=== PATIENT | female | born 1985 | race Caucasian/White ===

== ENCOUNTER 2019-02-05 18:24 | Emergency (ER) | payer OTHER ==
--- NOTE | 2019-02-05 19:17 | ED ---
General Adult HPI - General Chief complaint: Abdominal Pain Stated complaint: water weight gain Time Seen by Provider: 02/05/19 18:43 Source: patient Mode of arrival: ambulatory Limitations: no limitations - History of Present Illness Initial comments: Dictation was produced using MST dictation software. please excuse any grammatical, word or spelling errors. Chief Complaint: 34-year-old female witha few past medical history presents with 60 pound weight gain in pitting edema to her bilateral lower extremities. History of Present Illness: Patient is a 34-year-old female she is currently at [facility] for alcohol detoxification. Patient states she is here today because over the last 3-4 days she's been having swelling to her bilateral lower extremities. Patient states she's never had anything like this before. She states that she has mild shortness of breath especially with exertion however not at rest. Denies any history of cardiomyopathy or heart failure. Patient denies any changes in urinary habits. Denies any changes in eating habits. She states she's been sober for the last 4-5 days since being at the rehab facility. She is an avid runner running for several hours a day. The ROS documented in this emergency department record has been reviewed and confirmed by me. Those systems with pertinent positive or negative responses have been documented in the HPI. All other systems are other negative and/or noncontributory. PHYSICAL EXAM: General Impression: Alert and oriented x3, not in acute distress HEENT: Normocephalic atraumatic, extra-ocular movements intact, pupils equal and reactive to light bilaterally, mucous membranes moist. Cardiovascular: Heart regular rate and rhythm, S1&S2 audible, no murmurs, rubs or gallops Chest: Lungs clear to auscultation bilaterally, no rhonchi, no wheeze, no rales Abdomen: Bowel sounds present, abdomen soft, non-tender, non-distended, no organomegaly Musculoskeletal: Pulses present and equal in all extremities, 2+ pitting edema to the bilateral lower tib-fib area Motor: no focal deficits noted Neurological: CN II-XII grossly intact, no focal motor or sensory deficits noted Skin: Intact with no visualized rashes Psych: Normal affect and mood ED course: 34-year-old female presents with pitting edema to bilateral lower ext remities, vital signs upon arrival are within acceptable limits. Laboratory evaluation obtained. CBC is unremarkable. Metabolic panel is negative. A nitro peptide is negative. Troponins negative. Urinalysis does not show proteinuria. Beta-hCG is negative. Abdominal x-ray chest x-ray is unremarkable. Patient's symptoms are likely secondary to dependent edema. And seeing fluid shifting given that she recently has been abstaining from alcohol. Patient reassured told that her symptoms are self limiting. Patient request some GoLYTELY to help her have a bowel movement. Patient given a small cup of GoLYTELY. Patient for discharge. EKG interpretation: Ventricular rate 55, sinus bradycardia, KS interval 174, care and is 78, QTC 392. No KS prolongation, no QTC prolongation, no ST or T- wave changes noted. Overall, this EKG is unremarkable - Related Data Home Medications Medication Instructions Recorded Confirmed Acetaminophen Tab [Tylenol Tab] 650 mg PO Q4H PRN 02/05/19 02/05/19 Bisacodyl [Dulcolax] 10 mg RECTAL DAILY PRN 02/05/19 02/05/19 Calcium/Magnesium 2 tab PO TID PRN 02/05/19 02/05/19 Chlorpheniramine Maleate 4 mg PO Q4H PRN 02/05/19 02/05/19 [Chlor-Trimeton] Docusate [Colace] 100 mg PO BID PRN 02/05/19 02/05/19 Ibuprofen [Motrin] 600 mg PO Q6H PRN 02/05/19 02/05/19 traZODone HCL 50 - 150 mg PO HS 02/05/19 02/05/19 Allergies Allergy/AdvReac Type Severity Reaction Status Date / Time No Known Allergies Allergy Verified 02/05/19 20:11 Review of Systems ROS Statement: Those systems with pertinent positive or pertinent negative responses have been documented in the HPI. ROS Other: All systems not noted in ROS Statement are negative. Past Medical History Past Medical History: No Reported History History of Any Multi-Drug Resistant Organisms: None Reported Past Surgical History: No Surgical Hx Reported Past Psychological History: Anxiety Smoking Status: Current every day smoker Past Alcohol Use History: None Reported, Abuse Past Drug Use History: None Reported General Exam Limitations: no limitations Course Vital Signs 02/05/19 02/05/19 18:33 19:16 Temperature 97.4 F L 98.3 F Pulse Rate 71 64 Respiratory 18 17 Rate Blood Pressure 110/72 115/69 O2 Sat by Pulse 98 97 Oximetry Medical Decision Making - Lab Data Result diagrams: 02/05/19 19:40 02/05/19 19:40 Lab Results 02/05/19 02/05/19 02/05/19 Range/Units 19:40 19:40 19:40 WBC 3.8 (3.8-10.6) k/uL RBC 3.71 L (3.80-5.40) m/uL Hgb 10.5 L (11.4-16.0) gm/dL Hct 33.2 L (34.0-46.0) % MCV 89.5 (80.0-100.0) fL MCH 28.4 (25.0-35.0) pg MCHC 31.8 (31.0-37.0) g/dL RDW 15.5 (11.5-15.5) % Plt Count 222 (150-450) k/uL Neutrophils % 59 % Lymphocytes % 30 % Monocytes % 5 % Eosinophils % 2 % Basophils % 1 % Neutrophils # 2.3 (1.3-7.7) k/uL Lymphocytes # 1.1 (1.0-4.8) k/uL Monocytes # 0.2 (0-1.0) k/uL Eosinophils # 0.1 (0-0.7) k/uL Basophils # 0.0 (0-0.2) k/uL Sodium 137 (137-145) mmol/L Potassium 3.7 (3.5-5.1) mmol/L Chloride 105 (98-107) mmol/L Carbon Dioxide 28 (22-30) mmol/L Anion Gap 4 mmol/L BUN 10 (7-17) mg/dL Creatinine 0.84 (0.52-1.04) mg/dL Est GFR (CKD-EPI)AfAm >90 (>60 ml/min/1.73 sqM) Est GFR (CKD-EPI)NonAf 90 (>60 ml/min/1.73 sqM) Glucose 93 (74-99) mg/dL Calcium 8.7 (8.4-10.2) mg/dL Troponin I (0.000-0.034) ng/mL NT-Pro-B Natriuret Pep 152 pg/mL Urine Color Urine Appearance (Clear) Urine pH (5.0-8.0) Ur Specific Clymer (1.001-1.035) Urine Protein (Negative) Urine Glucose (UA) (Negative) Urine Ketones (Negative) Urine Blood (Negative) Urine Nitrite (Negative) Urine Bilirubin (Negative) Urine Urobilinogen (<2.0) mg/dL Ur Leukocyte Esterase (Negative) Urine WBC (0-5) /hpf Ur Squamous Epith Cells (0-4) /hpf Amorphous Sediment (None) /hpf Urine HCG, Qual (Not Detectd) 02/05/19 02/05/19 02/05/19 Range/Units 19:40 19:40 19:48 WBC (3.8-10.6) k/uL RBC (3.80-5.40) m/uL Hgb (11.4-16.0) gm/dL Hct (34.0-46.0) % MCV (80.0-100.0) fL MCH (25.0-35.0) pg MCHC (31.0-37.0) g/dL RDW (11.5-15.5) % Plt Count (150-450) k/uL Neutrophils % % Lymphocytes % % Monocytes % % Eosinophils % % Basophils % % Neutrophils # (1.3-7.7) k/uL Lymphocytes # (1.0-4.8) k/uL Monocytes # (0-1.0) k/uL Eosinophils # (0-0.7) k/uL Basophils # (0-0.2) k/uL Sodium (137-145) mmol/L Potassium (3.5-5.1) mmol/L Chloride (98-107) mmol/L Carbon Dioxide (22-30) mmol/L Anion Gap mmol/L BUN (7-17) mg/dL Creatinine (0.52-1.04) mg/dL Est GFR (CKD-EPI)AfAm (>60 ml/min/1.73 sqM) Est GFR (CKD-EPI)NonAf (>60 ml/min/1.73 sqM) Glucose (74-99) mg/dL Calcium (8.4-10.2) mg/dL Troponin I <0.012 (0.000-0.034) ng/mL NT-Pro-B Natriuret Pep pg/mL Urine Color Light Yellow Urine Appearance Cloudy H (Clear) Urine pH 7.5 (5.0-8.0) Ur Specific Clymer 1.007 (1.001-1.035) Urine Protein Negative (Negative) Urine Glucose (UA) Negative (Negative) Urine Ketones Negative (Negative) Urine Blood Negative (Negative) Urine Nitrite Negative (Negative) Urine Bilirubin Negative (Negative) Urine Urobilinogen <2.0 (<2.0) mg/dL Ur Leukocyte Esterase Trace H (Negative) Urine WBC 3 (0-5) /hpf Ur Squamous Epith Cells 3 (0-4) /hpf Amorphous Sediment Few H (None) /hpf Urine HCG, Qual Not Detected (Not Detectd) Disposition Clinical Impression: Peripheral edema Disposition: HOME SELF-CARE Condition: Good Is patient prescribed a controlled substance at d/c from ED?: No Referrals: Luisa Chin MD [Primary Care Provider] - 1-2 days Time of Disposition: 21:52
--- NOTE | 2019-02-05 19:28 | XR ---
EXAMINATION TYPE: XR chest 2V DATE OF EXAM: 02/05/2019 COMPARISON: NONE HISTORY: Chest pain per order. Significant weight gain per patient. TECHNIQUE: Frontal and lateral views of the chest are obtained. FINDINGS: There is no focal air space opacity, pleural effusion, or pneumothorax seen. The cardiac silhouette size is within normal limits. The osseous structures are intact. IMPRESSION: No acute cardiopulmonary process.
[2019-02-05 19:59] LABS: Amorphous Sediment,Urine Few /hpf; Appearance,Urine Cloudy (Clear); Bilirubin,Urine Negative (Negative); Blood,Urine Negative (Negative); Color,Urine Light Yellow; Glucose,Urine (UA) Negative (Negative); Ketones,Urine Negative (Negative); Leukocyte Esterase,Urine Trace (Negative); Nitrite,Urine Negative (Negative); PH, Urine 7.5 (5.0-8.0); Protein,Urine Negative (Negative); Specific Gravity,Urine 1.007 (1.001-1.035); Squamous Epithelial Cell,Urine 3 /hpf (0-4); Urobilinogen,Urine <2.0 mg/dL (<2.0); WBC,Urine 3 /hpf (0-5)
[2019-02-05 20:05] LABS: Basophils % (A) 1 %; Eosinophils # (A) 0.1 k/uL (0-0.7); Eosinophils % (A) 2 %; HCT 33.2 % (34.0-46.0); HGB 10.5 gm/dL (11.4-16.0); Lymphocytes # (A) 1.1 k/uL (1.0-4.8); Lymphocytes % (A) 30 %; MCH 28.4 pg (25.0-35.0); MCHC 31.8 g/dL (31.0-37.0); MCV 89.5 fL (80.0-100.0); Mean Platelet Volume 6.9; Monocytes # (A) 0.2 k/uL (0-1.0); Monocytes % (A) 5 %; Neutrophils # (A) 2.3 k/uL (1.3-7.7); Neutrophils % (A) 59 %; Platelet Count 222 k/uL (150-450); RBC 3.71 m/uL (3.80-5.40); RDW 15.5 % (11.5-15.5); WBC 3.8 k/uL (3.8-10.6)
[2019-02-05 20:13] LABS: African American GFR (CKD) >90 (>60 ml/min/1.73 sqM); Anion Gap 4 mmol/L; Blood Urea Nitrogen 10 mg/dL (7-17); Calcium 8.7 mg/dL (8.4-10.2); Carbon Dioxide 28 mmol/L (22-30); Chloride 105 mmol/L (98-107); Glucose 93 mg/dL (74-99); Potassium 3.7 mmol/L (3.5-5.1); Sodium 137 mmol/L (137-145)
--- NOTE | 2019-02-05 20:47 | XR ---
EXAMINATION TYPE: XR abdomen 1V DATE OF EXAM: 02/05/2019 8:43 PM CLINICAL HISTORY: Abdominal pain. TECHNIQUE: Two Upright KUB images of the abdomen are obtained. COMPARISON: None. FINDINGS: Scattered gas is seen in non-distended stomach and small bowel loops. Gas and fecal materia l is seen in non-distended colon. Scattered right-sided pelvic phleboliths. Lung bases are clear. Oss eous structures are intact. IMPRESSION: Overall nonobstructive bowel gas pattern.
[2019-02-05] MEDS ORDERED: PEG 3350-NA SULF,BICARB,CL/KCL 4,000 ML BOTTLE PO ONE (22:15)
[2019-02-05 22:33] VITALS: BP 117/73; PULSE 72; RESP 16; TEMP 98.1
== END 2019-02-05 22:20 | disposition home or self-care (01) ==
LOC: EC 18:24
DX: R60.0 Localized edema (principal); R06.02 Shortness of breath; R00.1 Bradycardia, unspecified; F31.9 Bipolar disorder, unspecified; F17.200 Nicotine dependence, unspecified, uncomplicated; Z79.899 Other long term (current) drug therapy
CPT/HCPCS: 36415; 71046; 74018; 80048; 81001; 81025; 83880; 84484; 85025; 93005; 99284

== ENCOUNTER → 2019-04-14 | Outpatient (CLI) | payer OTHER | END | disposition home or self-care (01) | LOC: LABWHC1 10:00 | PROVIDERS: ATTEND Internal Medicine | DX: K59.00 Constipation, unspecified (principal); Z32.01 Encounter for pregnancy test, result positive | CPT/HCPCS: 36415; 84702; 84703 ==

== ENCOUNTER 2019-12-07 06:34 | Outpatient (CLI) | payer OTHER ==
[2019-12-07] MEDS ORDERED: TERBUTALINE 1 MG/ML VIAL SQ STA (06:49)
[2019-12-07] MEDS ORDERED: LACTATED RINGERS 1,000 ML IV SCH (07:00)
--- NOTE | 2019-12-07 07:55 | P.PCN ---
Date of Procedure: 12/07/19 (Breech presentation, 37-5/7 weeks' gestation) Preoperative Diagnosis: Breech presentation, 37-5/7 weeks' gestation, Rh+ Postoperative Diagnosis: Vertex presentation Procedure(s) Performed: Successful external cephalic version Anesthesia: none Surgeon: Jessica Jeffrey Advertising Strategist #1: Jose Sullivan Estimated Blood Loss (ml): 0 IV fluids (ml): 0 Urine output (ml): 0 Pathology: none sent Condition: stable Disposition: observation Description of Procedure: Patient was extensively counseled in the office regarding her procedure today, risks and benefits. Informed consent is reviewed signed witnessed and dated. IV is started. Terbutaline 0.25 mg is given subcutaneously 30 minutes prior to the procedure. Patient is placed in the dorsal supine position with left lateral uterine displacement utilizing an IV bag. Ultrasound at the bedside confirms vertex presentation, back to maternal left, heart rate prior to procedure in the 140s baseline with frequent accelerations, consistent with reactive NST. Ultrasound gel is used abundantly. With Dr. Calderon standing on the patient's right side, I am on patient's left. The breech is lifted from the pelvis and gentle traction is used for a backward roll. After 2 minutes, heart rate is rechecked sonographically and noted to be 140. With one additional minute of manipulation, successful breech version is obtained. Heart rate is again c hecked and noted to be in the 140s. Patient tolerates the procedure very well. Patient is placed back on the monitor, frequent accelerations are noted and a reactive NST is obtained. She is observed for an additional 60 minutes prior to discharge. She will follow-up with me in the office in 1 week for recheck. Complications none.
--- NOTE | 2019-12-07 08:15 | US ---
EXAMINATION TYPE: US OB limited DATE OF EXAM: 12/07/2019 COMPARISON: NONE CLINICAL HISTORY: External Cephalic Version. EXAM PERFORMED: Transabdominal (TA) GESTATIONAL AGE / DATING No growth performed on today?s study per ordering physician SURVEY PRESENTATION: breech at beginning of exam, vertex at end of exam. HEART RATE: 150 bpm RHYTHM: Normal IMPRESSION: Successful external cephalic version
== END 2019-12-07 09:05 | disposition home or self-care (01) ==
LOC: FBPOP 06:34
PROVIDERS: ATTEND Obstetrics & Gynecology
DX: O32.1XX0 Maternal care for breech presentation, not applicable or unspecified (principal); Z3A.37 37 weeks gestation of pregnancy
CPT/HCPCS: 59412; 86900; 86901; 86850; 76815; J3105

== ENCOUNTER 2019-12-20 22:10 | Inpatient (IN) | payer OTHER ==
[2019-12-21] MEDS ORDERED: TERBUTALINE 1 MG/ML VIAL SQ PRN (01:21)
[2019-12-21] MEDS ORDERED: METHYLERGONOVINE 0.2 MG/ML 1 ML AMP IM PRN (01:21)
[2019-12-21] MEDS ORDERED: OXYTOCIN 10 UNIT/ML 1 ML VIAL IM PRN (01:21)
[2019-12-21] MEDS ORDERED: LIDOCAINE 0.5% (PF) 5 MG/ML (50 ML SDV) SQ PRN (01:21)
[2019-12-21] MEDS ORDERED: CARBOPROST TROMETHAMINE 250 MCG/ML 1 ML AMP IM PRN (01:21)
[2019-12-21] MEDS: LACTATED RINGERS 1,000 ML IV SCH ×4 (01:25→18:55)
[2019-12-21 01:37] LABS: Basophils % (A) 0 %; Eosinophils # (A) 0.2 k/uL (0-0.7); Eosinophils % (A) 2 %; HCT 37.5 % (34.0-46.0); HGB 12.3 gm/dL (11.4-16.0); Lymphocytes # (A) 1.5 k/uL (1.0-4.8); Lymphocytes % (A) 14 %; MCH 29.3 pg (25.0-35.0); MCHC 32.9 g/dL (31.0-37.0); MCV 89.1 fL (80.0-100.0); Monocytes # (A) 0.4 k/uL (0-1.0); Monocytes % (A) 4 %; Neutrophils # (A) 8.3 k/uL (1.3-7.7); Neutrophils % (A) 79 %; Platelet Count 205 k/uL (150-450); RBC 4.21 m/uL (3.80-5.40); WBC 10.5 k/uL (3.8-10.6)
[2019-12-21] MEDS: BUTORPHANOL 1 MG/ML 1 ML VIAL IV PRN ×2 (01:42→07:10)
[2019-12-21] MEDS: OXYTOCIN 30 UNITS/500 ML NS 30 UNIT in SALINE 1 500ML.BAG IV SCH (05:11)
[2019-12-21] MEDS ORDERED: CITRIC ACID-SODIUM CITRATE 15 ML CUP PO ONE (07:30)
--- NOTE | 2019-12-21 07:38 | P.HPOB ---
History of Present Illness H&P Date: 12/21/19 This is a 34-year-old white female 3 para 2002 EDC 12/23/2019 at 39-5/7 weeks' gestation. Patient presented through the night with strong regular uterine contractions, in early spontaneous labor. Fetus is been active throughout the . is remarkable for breech presentation, status post successful version 2 weeks ago. Patient denies vaginal bleeding or fluid leakage. Past medical history is significant for anxiety and depression. Patient also has a history of epilepsy, last seizure many years ago. On no meds. Past surgical history is negative. Current medications Prozac 20 mg daily, vitamin daily. Family history is essentially unremarkable. ALLERGIES none known. Reproductive history 2 previous vaginal deliveries, both female infants, 2008 and 2016, no issues with or deliveries. Social history patient is single, father of the baby is present and involved. Patient is a tobacco smoker, stating only 1 cigarette daily at this time. She denies alcohol or drug use. history is significant for blood type A+, rubella status immune. VDRL testing, urine culture, hepatitis B surface antigen, HIV testing, gonorrhea and chlamydia cultures, Pap smear, group B strep cultures all negative. One-hour Glucola 34. On exam this is a pleasant female who is 5 foot 10 inches, 176 pounds, blood pressure on admission 125/77, vital signs otherwise stable. General physical exam is within normal limits. Chest is clear in all ames. Extremities reveal no edema. heart rate is consistent with reactive NST in the 140s baseline. Uterine contractions occurring every 3 minutes apart. Cervix is 3-4 cm dilated, 60-70% effaced, posterior. Artificial amniorrhexis reveals clear fluid. There is a hand in the cervix. Upon manipulating the digits, retraction of the hand does not occur. Impression: Advanced maternal age, 39-5/7 weeks intrauterine , active labor, hand presentation. Plan: We will proceed at this time with primary low transverse section. I've asked the patient about the option of tubal ligation and she is discussing this with her boyfriend. Anesthesia staff present and aware. Antibiotic prophylaxis as per protocol. All risks and benefits of the procedure are described in detail. All questions answered. Review of Systems Constitutional: Reports as per HPI Past Medical History Past Medical History: Seizure Disorder Additional Past Medical History / Comment(s): epilepsy last seizure 10-11 yrs History of Any Multi-Drug Resistant Organisms: None Reported Past Surgical History: No Surgical Hx Reported Additional Past Surgical History / Comment(s): wisdom teeth Past Anesthesia/Blood Transfusion Reactions: No Reported Reaction Past Psychological History: Anxiety, PTSD Smoking Status: Former smoker Past Alcohol Use History: None Reported, Abuse Past Drug Use History: None Reported - Past Family History Mother Family Medical History: Cancer Additional Family Medical History / Comment(s): cervical cancer Medications and Allergies Home Medications Medication Instructions Recorded Confirmed Type Pnv No.95/Ferrous Fum/Folic AC 1 tab PO DAILY 12/07/19 12/21/19 History [ Multivitamin Tablet] Allergies Allergy/AdvReac Type Severity Reaction Status Date / Time No Known Allergies Allergy Verified 12/20/19 22:18 Exam Vital Signs Temp Pulse Resp BP Pulse Ox 12/21/19 02:44 98.4 F 65 18 125/77 12/21/19 01:12 97.3 F L 66 18 126/80 12/20/19 22:22 98.4 F 65 16 125/77 98 Intake and Output 12/20/19 12/21/19 12/21/19 22:59 06:59 14:59 Other: # Voids 1 Weight 79.832 kg 79.832 kg See dictation under HPI please Results Result Diagrams: 12/21/19 01:24 Abnormal Lab Results - Last 24 Hours (Table) 12/21/19 Range/Units 01:24 Neutrophils # 8.3 H (1.3-7.7) k/uL Assessment and Plan Assessment: 39-5/7 weeks intrauterine , active labor, hand presentation. Advanced maternal age. Plan: We will proceed at this time with primary low transverse section. Option of tubal ligation has been presented to the patient, she is discussing this with her partner. All risks and benefits of the procedure described in detail. Time with Patient: Less than 30
[2019-12-21] MEDS ORDERED: KETOROLAC 30 MG/ML 1 ML VIAL ONE (07:41)
[2019-12-21] MEDS ORDERED: MORPHINE SULFATE (PF) 0.3 MG/0.3 ML SYR ONE (07:41)
[2019-12-21] MEDS ORDERED: ePHEDrine SULFATE/0.9% NACL/PF 50 MG/5 ML SYRINGE IV ONE (07:41)
[2019-12-21] MEDS ORDERED: NALBUPHINE 10 MG/ML (1 ML AMP) ONE (07:41)
[2019-12-21] MEDS ORDERED: ceFAZolin 1,000 MG VIAL ONE (07:41)
[2019-12-21] MEDS ORDERED: OXYTOCIN 10 UNIT/ML 1 ML VIAL ONE (07:41)
[2019-12-21] MEDS ORDERED: ONDANSETRON 4 MG/2 ML VIAL ONE (07:41)
[2019-12-21] MEDS ORDERED: CELLULOSE,OXIDIZED 1 EACH EACH MISCELLANE ONE (07:42)
[2019-12-21] MEDS ORDERED: NALOXONE 0.4 MG/ML 1 ML VIAL IV PRN (08:44)
[2019-12-21] MEDS ORDERED: ACETAMINOPHEN TAB 325 MG TAB PO PRN (08:44)
[2019-12-21] MEDS ORDERED: ZOLPIDEM 5 MG TAB PO PRN (08:44)
[2019-12-21] MEDS ORDERED: diphenhydrAMINE 50 MG CAP PO PRN (08:44)
[2019-12-21] MEDS ORDERED: METOCLOPRAMIDE 5 MG/ML 2 ML VIAL IVP PRN (08:44)
[2019-12-21] MEDS ORDERED: IBUPROFEN 600 MG TAB PO PRN (08:44)
[2019-12-21] MEDS ORDERED: ONDANSETRON 4 MG/2 ML VIAL IVP PRN (08:44)
[2019-12-21] MEDS ORDERED: diphenhydrAMINE 50 MG/ML 1 ML VIAL IVP PRN ×2 (08:44)
[2019-12-21] MEDS ORDERED: diphenhydrAMINE 25 MG CAP PO PRN (08:44)
--- NOTE | 2019-12-21 08:44 | P.OP ---
Date of Procedure: 12/21/19 Preoperative Diagnosis: 39-5/7 weeks, compound presentation, hand palpated in the cervix. Undesired fertility. Advanced maternal age. Postoperative Diagnosis: Fibroid uterus, transverse lie with Herber knife positioning. Procedure(s) Performed: Primary low transverse section, bilateral tubal ligation. Anesthesia: spinal Surgeon: Jessica Jeffrey House Worker #1: Jose Sullivan Estimated Blood Loss (ml): 600 IV fluids (ml): 900 Urine output (ml): 50 Pathology: none sent Condition: stable Disposition: PACU Operative Findings: "Jackknifed" presentation. Small fibroids noted on uterine serosa. Normal- appearing tubes and ovaries bilaterally. Description of Procedure: Patient presented in active spontaneous labor. The is remarkable for previous breech presentation, version completed 2 weeks ago. Upon artificial amniorrhexis hand was noted in the cervix, cervix 3-4 cm dilated. I was unable to reduce the hand and therefore decision was made for primary low transverse section. Between patient and her they have 6 children, and she is requesting bilateral tubal ligation. Consent is reviewed signed witnessed and dated, all risks and benefits reviewed. Antibiotics are given. Patient is brought to the operating suite, Chávez catheter placed. Spinal with Duramorph is given. Patient is placed in the dorsal supine position with left lateral uterine displacement. The appropriate timeout was performed to assure proper patient and procedural identification. Analgesia is checked and noted to be adequate. A low transverse skin incision is made in this is carried down through the subcutaneous tissue to the fascia. Fascia is isolated, scored, extended bilaterally with curved Singh scissors. The uterus is entered with a low transverse incision which is extended with blunt dissection. A foot is presenting through the incision. I am unable to find sacrum. The foot is therefore placed back into the uterus. The uterine incision is then "T-ed" with a midline incision approximately 2 cm superior. The contralateral foot is then palpated, brought into the incision, along with the left or other foot and leg. The breech is rotated sacrum anterior. The breech is brought then down through the incision and a blue towel was wrapped around the trunk. Pinard maneuvers used bilaterally to deliver the upper extremities. Infant's head is delivered in a flexed position. Patient is officially delivered of a liveborn male infant at 0802 hrs. Umbilical cord is doubly clamped and ligated, he is handed to waiting nurses for evaluation where scores of 59 and 9 at one and 5 and 10 minutes respectively are given. Placentas delivered spontaneously, it is inspected and noted to be intact with trivascular cord. The uterus is then externalized and massaged. It is swept clean with a sterile sponge to avoid any retained products of conception. The edges of the incision are grasped with Rankin clamps. The incision is closed in a two-step fashion, first layer running locking, second layer imbricated. Excellent reapproximation is noted. Bilateral tubes and ovaries are inspected and noted to be normal. The patient's desire for tubal ligation is once again confirmed. Filshie clips are used in the isthmic portion of the tubes bilaterally with care to traverse the entire diameter of the tubes into the mesal salpinx. Fimbriated ends are identified for proper placement. Abdomen is then suction posterior to the uterus with suction on guard. In inspecting the uterus to submucosal fibroids are noted, both approximately 2 cm in diameter. Uterus is gently placed back into the abdominal cavity. Bilateral gutters are inspected and cleaned. Uterine incision is once again noted to be clean and dry. Because of the T like positioning, a segment of Interceed is placed over the uterine incision to aid in the prevention of adhesions. Chávez is noted to be draining clear urine. Subcutaneous tissue is allowed to close by secondary intention. Fascia is closed in a running stitch of 0 Vicryl with over ligation in the midline. Subcutaneous tissue is irrigated, noted to be clean and dry. It is reapproximated with 3-0 Vicryl. 4-0 undyed Monocryl is then used in a subcutaneous fashion for final skin closure. Steri-Strips and Mastisol are applied to the wound. Uterus is massaged for a small amount of bleeding area again Chávez catheter is draining clear urine. Patient is brought back to recovery room in very good condition with stable vital signs including blood pressure 115/62, pulse 75. Patient is requesting circumcision for her infant son.
[2019-12-21] MEDS ORDERED: OXYTOCIN 20 UNITS/1000 ML NS 1,000 ML IV SCH (10:45)
[2019-12-21] MEDS: KETOROLAC 30 MG/ML 1 ML VIAL IVP SCH ×2 (11:56→18:41)
[2019-12-21] MEDS: SENNOSIDES-DOCUSATE SODIUM 1 EACH TAB PO SCH (19:53)
[2019-12-22] MEDS: KETOROLAC 30 MG/ML 1 ML VIAL IVP SCH ×2 (00:26→06:27)
--- NOTE | 2019-12-22 06:42 | P.PN ---
Progress Note - Text Progress Note Date: 12/22/19 34 yo female s/p c/section with duramorph. Overall patient doing well, VAS 2- 4/10, no motor and sensory deficits. Tolerating diet ok.
[2019-12-22 07:42] LABS: Basophils % (A) 0 %; Eosinophils # (A) 0.2 k/uL (0-0.7); Eosinophils % (A) 2 %; HCT 29.3 % (34.0-46.0); Hypochromasia Slight; Lymphocytes # (A) 0.8 k/uL (1.0-4.8); Lymphocytes % (A) 10 %; MCH 29.5 pg (25.0-35.0); MCHC 32.5 g/dL (31.0-37.0); MCV 90.7 fL (80.0-100.0); Mean Platelet Volume 9.4; Monocytes # (A) 0.3 k/uL (0-1.0); Monocytes % (A) 4 %; Neutrophils # (A) 6.1 k/uL (1.3-7.7); Neutrophils % (A) 82 %; Platelet Count 119 k/uL (150-450); RBC 3.23 m/uL (3.80-5.40); RDW 13.9 % (11.5-15.5); WBC 7.4 k/uL (3.8-10.6)
[2019-12-22 07:46] LABS: HGB 9.5 gm/dL (11.4-16.0)
[2019-12-22] MEDS: SENNOSIDES-DOCUSATE SODIUM 1 EACH TAB PO SCH (07:58)
--- NOTE | 2019-12-22 08:23 | P.DS ---
Providers Date of admission: 12/21/19 01:08 Expected date of discharge: 12/22/19 Attending physician: Jessica Jeffrey [facility] Course: This is a 34-year-old white female 3 para 2001 EDC 12/23/2019 who presented at 39-5/7 weeks' gestation in active spontaneous labor. The was remarkable for breech presentation, status post successful version 2 weeks ago. On admission was vertex presentation. Artificial amniorrhexis revealed clear fluid, however the hand presentation was noted at the time of amniorrhexis. The hand with did not reduce even with manipulation, and therefore the decision was made to proceed with primary low transverse section for compound presentation. Patient underwent a primary low transverse section at which time a tubal ligation was also performed for her request. She gave to a liveborn male with scores of 59 and 9 at one and 5 and 10 minutes respectively. He weighed 8 lbs. 7 oz. or 3820 g. Estimated blood loss at surgery 600 mL's. Fibroids were noted on the uterus. Please see dictated operative note for details. This morning the patient is doing very well. She is ambulating and passing flatus without difficulty. Vital signs are stable and she is afebrile. She is currently in the shower where she will attempt to void. The incision is clean and dry, intact with Steri-Strips applied. Breasts are not engorged. Patient has no edema. Chest is clear in all ames. She is requesting discharge home especially in light of the current co-vid 19 situation. Circumcision has been performed on her son. Patient is judged to be in good condition for discharge home. I'm recommending she continue her vitamin daily. Ferrous sulfate 325 mg twice daily. Postoperative anemia is discussed with the patient, she is stable in this regard. I reviewed with her proper wound care. No intercourse, tampons or douching. Follow-up with me in the office in 2 weeks. [id number] ibuprofen or Advil or Aleve products as needed for pain. She will call with any fevers shakes or chills, foul smelling or copious vaginal lochia, with any pain not alleviated by [id number] products, with any difficulties breast-feeding, or indeed with any concerns. [place] will follow-up with folder stitcher operator as per recommendations. Patient Condition at Discharge: Good Plan - Discharge Summary Discharge Rx Participant: No New Discharge Prescriptions: No Action Pnv No.95/Ferrous Fum/Folic AC [ Multivitamin Tablet] 1 tab PO DAILY Discharge Medication List Pnv No.95/Ferrous Fum/Folic AC [ Multivitamin Tablet] 1 tab PO DAILY 12/07/19 [History] Follow up Appointment(s)/Referral(s): Jessica Jeffrey MD [Primary Care Provider] - 2 Weeks Discharge Disposition: HOME SELF-CARE
[2019-12-22 11:42] VITALS: RESP 18
[2019-12-22] MEDS: LACTATED RINGERS 1,000 ML IV SCH ×4 (11:46→11:48)
[2019-12-22] MEDS: OXYTOCIN 30 UNITS/500 ML NS 30 UNIT in SALINE 1 500ML.BAG IV SCH (11:47)
[2019-12-22] MEDS: HYDROcodone/APAP 5-325MG 1 EACH TAB PO PRN ×2 (12:08→16:02)
[2019-12-22 16:21] VITALS: BP 114/75; PULSE 84; TEMP 97.7
== END 2019-12-22 18:00 | disposition home or self-care (01) | DRG 784 ==
LOC: FBPOP 22:10 → 4FBP 12-21 01:08
PROVIDERS: ADMIT Obstetrics & Gynecology; ATTEND Obstetrics & Gynecology
PROC: 0UL70CZ Occlusion of Bilateral Fallopian Tubes with Extraluminal Device, Open Approach (ICD-10-PCS; principal; 2019-12-21 07:45)
PROC: 10D00Z1 Extraction of Products of Conception, Low, Open Approach (ICD-10-PCS; principal; 2019-12-21 07:45)
DX: O32.6XX0 Maternal care for compound presentation, not applicable or unspecified (principal); O99.354 Diseases of the nervous system complicating childbirth; O34.13 Maternal care for benign tumor of corpus uteri, third trimester; D25.9 Leiomyoma of uterus, unspecified; G40.909 Epilepsy, unspecified, not intractable, without status epilepticus; O99.334 Smoking (tobacco) complicating childbirth; F17.210 Nicotine dependence, cigarettes, uncomplicated; O99.344 Other mental disorders complicating childbirth; F43.10 Post-traumatic stress disorder, unspecified; F32.9 Major depressive disorder, single episode, unspecified; F41.9 Anxiety disorder, unspecified; Z37.0 Single live birth; Z3A.39 39 weeks gestation of pregnancy; Z30.2 Encounter for sterilization; Z79.899 Other long term (current) drug therapy; Z80.49 Family history of malignant neoplasm of other genital organs
CPT/HCPCS: 59025; 85025; 86850; 86900; 86901; 99213

== ENCOUNTER 2023-09-14 09:08 | Day surgery (SDC) | payer OTHER ==
[~2023-09-14 09:08] MED LIST: LACTATED RINGERS 1,000 ML IV SCH; LIDOCAINE 1% (10MG/ML) FOR IV START INTRADERMA PRN; ONDANSETRON 4 MG/2 ML VIAL IVP PRN
[2023-09-14] MEDS ORDERED: PROPOFOL 10 MG/ML 20 ML VIAL IV ONE (10:16)
[2023-09-14] MEDS ORDERED: LIDOCAINE 1% INJ 10MG/ML (20 ML MDV) ONE (10:16)
[2023-09-14 10:23] VITALS: TEMP 98.1
--- NOTE | 2023-09-14 10:53 | P.PCN ---
Date of Procedure: 09/14/23 Procedure(s) Performed: Brief history: Patient is a 38-year-old pleasant white female scheduled for an upper endoscopy as well as colonoscopy as a part of evaluation of severe symptomatic iron deficiency anemia with a hemoglobin of 5.5 g/dL requiring blood transfusion. She has been combining of intermittent rectal bleeding.. Preoperative diagnosis: Severe iron deficiency anemia. Procedure performed Colonoscopy with snare polypectomy EGD with biopsy [place] [facility] [place]: After informed consent was obtained from the patient was brought into the endoscopy unit and IV sedation was administered by anesthesia under continuous monitoring. Initial digital rectal examination was normal. Olympus CF 160 video colonoscope was then inserted into the rectum and gradually advanced to the cecum without any difficulty. Careful examination was performed as the scope was gradually being withdrawn. The prep was excellent. The cecum, ascending colon, transverse colon, descending colon, sigmoid colon and rectum appeared normal. Small colon there was a 5 mm polyp removed by snare polypectomy. Retroflexion was performed in the rectum and there was a 1.5 cm friable anal polyp identified with apparently that was removed by snare polypectomy. Patient tolerated the procedure well. Patient continued to remain sedated and at this time upper endoscopy was done. The Olympus GF 160 video endoscope was inserted inserted into the mouth and esophagus intubated without any difficulty and was gradually advanced into the stomach and duodenum and carefully examined. The bulb and second part of the duodenum appeared normal. Biopsies were done from the duodenum to rule out celiac disease. The scope was then withdrawn into the stomach adequately insufflated with air and upon careful examination the antrum had erosive gastritis and biopsies were done from this area. Mucosa of the body, cardia and fundus appeared normal. The scope was then withdrawn into the esophagus. Small hiatal hernia noted. The GE junction was located at 40 cm to the incisors. It appeared regular with no erythema erosions or ulcerations. Rest of the esophagus appeared normal. Patient tolerated the procedure well. Impression: 1. Colonoscopy revealed 5 mm; polyp status post cold snare polypectomy, 1.5 cm anal polyp status post snare polypectomy 2. Upper endoscopy revealed antral erosive gastritis and small hiatal hernia. Recommendations: Findings of this examination were discussed with the patient as well as her family. She was advised to follow with the biopsy results. She'll be seen in office in 3-4 weeks.
[2023-09-14 11:39] VITALS: BP 94/62; PULSE 63; RESP 14
== END 2023-09-14 11:43 | disposition home or self-care (01) ==
LOC: ORWHC2ENDO 09:08
PROVIDERS: ATTEND Internal Medicine Gastroenterology
DX: K29.50 Unspecified chronic gastritis without bleeding (principal); D50.9 Iron deficiency anemia, unspecified; K62.0 Anal polyp; K44.9 Diaphragmatic hernia without obstruction or gangrene; G40.909 Epilepsy, unspecified, not intractable, without status epilepticus; F12.90 Cannabis use, unspecified, uncomplicated; F41.9 Anxiety disorder, unspecified; F43.10 Post-traumatic stress disorder, unspecified; Z86.010 Personal history of colon polyps; Z87.891 Personal history of nicotine dependence; Z79.899 Other long term (current) drug therapy
CPT/HCPCS: 81025; 88305; 45385; 43239; J2001; J2704